=== PATIENT | male | born 1960 | race Caucasian/White ===

== ENCOUNTER 2016-07-13 13:31 | Emergency (ER) | payer OTHER ==
[~2016-07-13] VITALS: Ht 160 cm; Wt 63.5 kg
[2016-07-13] MEDS ORDERED: METO-295 PO (13:49)
[2016-07-13] MEDS ORDERED: SENN8.6T6 PO (13:49)
[2016-07-13] MEDS ORDERED: MOME13HF2 IH (13:49)
[2016-07-13] MEDS ORDERED: AMIO200T2 PO (13:49)
[2016-07-13] MEDS ORDERED: AMLO10TA2 PO (13:49)
[2016-07-13] MEDS ORDERED: ATOR40TA PO (13:49)
[2016-07-13] MEDS ORDERED: ACET-2605 PO (13:49)
[2016-07-13] MEDS ORDERED: HYDR-3026 PO (13:49)
[2016-07-13] MEDS ORDERED: ASPI81TA2 PO (13:49)
[2016-07-13] MEDS ORDERED: FAMO20TA8 PO (13:49)
[2016-07-13] MEDS ORDERED: ONDA4TAB5 PO (13:49)
[2016-07-13] MEDS ORDERED: MULT1TAB11 PO (13:49)
[2016-07-13] MEDS ORDERED: HYDR-4075 PO (13:49)
[2016-07-13] MEDS ORDERED: APIX5TAB PO (13:49)
[2016-07-13] MEDS ORDERED: LISI40TA4 PO (13:49)
[2016-07-13] MEDS ORDERED: LEVE250T2 PO (13:49)
[2016-07-13] MEDS ORDERED: METO25TA20 PO (13:49)
[2016-07-13] MEDS ORDERED: IV SET PRIMARY 1 EA INFUS.SET MC ONE (13:54)
[2016-07-13] MEDS ORDERED: IV NS 0.9% 1,000 ML ONE (13:54)
[2016-07-13] MEDS ORDERED: IV NS 0.9% 500 ML BAG IV ONE (14:00)
[2016-07-13 14:10] LABS: BASOPHILS % (AUTO) 0.4 % (0.0-2.0); DIFF TOTAL % 100 %; EOSINOPHILS # (AUTO) 0.3 /CMM (0.0-0.7); EOSINOPHILS % (AUTO) 6.1 % (0.0-6.0); HEMATOCRIT 32 % (39-51); HEMOGLOBIN 9.9 g/dL (13.5-17.5); MEAN CORPUSCULAR HEMOGLOBIN 30 PG (26.0-33.0); MEAN CORPUSCULAR HGB CONC 31 g/dl (31.0-36.0); MEAN CORPUSCULAR VOLUME 97 fL (80-96); MONOCYTES # (AUTO) 0.9 /CMM (0.1-1.30); MONOCYTES % (AUTO) 16.7 % (2.0-12.0); NEUTROPHILS % (AUTO) 56.8 % (43.0-81.0); PLATELET COUNT (AUTO) 122 /CMM (150-450); WHITE BLOOD COUNT (AUTO) 5.2 K/uL (4.3-11.0)
[2016-07-13 14:20] LABS: CALCIUM, SERUM 8.3 mg/dL (8.5-10.1); CREATININE 4.7 mg/dL (0.6-1.3); POTASSIUM 4.1 mmol/L (3.5-5.1)
[2016-07-13 14:24] LABS: INR 1.25 (0.87-1.13); PROTHROMBIN TIME 13.1 SECS (9.5-12.7)
[2016-07-13 14:26] LABS: ALBUMIN 2.5 g/dL (3.4-5.0); BILIRUBIN,DIRECT 0.3 mg/dL (0.0-0.2); BILIRUBIN,TOTAL 0.5 mg/dL (0.2-1.0); INDIRECT BILIRUBIN 0.2 mg/dL (0.0-1.1); TOTAL PROTEIN, SERUM 6.9 g/dL (6.4-8.2)
[2016-07-13 14:28] LABS: TROPONIN I 0.267 ng/mL (0.00-0.056)
[2016-07-13 14:59] LABS: ANISOCYTOSIS 1+; BAND % (MANUAL) 5 % (0.0-5.0); EOSINOPHILS % (MANUAL) 7 % (0-4); LYMPHOCYTES % (MANUAL) 15 % (16-48); PLATELET ESTIMATE DECRE
[2016-07-13 15:00] LABS: OVALOCYTES RARE; POIKILOCYTOSIS RARE
[2016-07-13 15:31] LABS: LACTIC ACID 1.1 mmol/L (0.4-2.0)
[2016-07-13 17:31] VITALS: BP 96/43
== END 2016-07-13 17:33 | disposition home or self-care (01) ==
LOC: ER 13:33
DX: I95.9 Hypotension, unspecified (principal); I12.0 Hypertensive chronic kidney disease with stage 5 chronic kidney disease or end stage renal disease; N18.5 Chronic kidney disease, stage 5
CPT/HCPCS: 36415; 71010; 80048; 80076; 83605; 84484; 85025; 85730; 87040 ×2; 93005; 96360; 99285; A4606; J7030; Z7610

== ENCOUNTER 2016-07-25 16:55 | Inpatient (IN) | payer OTHER ==
[~2016-07-25] VITALS: Ht 157.5 cm; Wt 55.4 kg
[~2016-07-25 16:55] MED LIST: ACET-2605 PO; AMIO200T2 PO; AMLO10TA2 PO; APIX5TAB PO; ASPI81TA2 PO; ATOR40TA PO; FAMO20TA8 PO; HYDR-3026 PO; HYDR-4075 PO; LEVE250T2 PO; LISI40TA4 PO; METO-295 PO; METO25TA20 PO; MOME13HF2 IH; MULT1TAB11 PO; ONDA4TAB5 PO; SENN8.6T6 PO
[2016-07-25 18:18] LABS: BASOPHILS % (AUTO) 0.7 % (0.0-2.0); DIFF TOTAL % 100 %; EOSINOPHILS # (AUTO) 0.5 /CMM (0.0-0.7); EOSINOPHILS % (AUTO) 8.4 % (0.0-6.0); HEMATOCRIT 26 % (39-51); HEMOGLOBIN 8.4 g/dL (13.5-17.5); LYMPHOCYTES # (AUTO) 1.3 /CMM (0.8-4.8); LYMPHOCYTES % (AUTO) 21.4 % (20.0-44.0); MEAN CORPUSCULAR HEMOGLOBIN 30 PG (26.0-33.0); MEAN CORPUSCULAR HGB CONC 32 g/dl (31.0-36.0); MEAN CORPUSCULAR VOLUME 94 fL (80-96); MONOCYTES # (AUTO) 0.6 /CMM (0.1-1.30); MONOCYTES % (AUTO) 9.5 % (2.0-12.0); NEUTROPHILS # (AUTO) 3.8 /CMM (1.8-8.9); PLATELET COUNT (AUTO) 209 /CMM (150-450); RED BLOOD CELL COUNT(AUTO) 2.79 MIL/uL (4.5-6.0); WHITE BLOOD COUNT (AUTO) 6.2 K/uL (4.3-11.0)
[2016-07-25] MEDS ORDERED: ZINC220C8 PO (18:24)
[2016-07-25] MEDS ORDERED: ESCI5TAB PO (18:24)
[2016-07-25 18:32] LABS: ALBUMIN 2.6 g/dL (3.4-5.0); BILIRUBIN,DIRECT 0.2 mg/dL (0.0-0.2); BILIRUBIN,TOTAL 0.5 mg/dL (0.2-1.0); CALCIUM, SERUM 8.7 mg/dL (8.5-10.1); INDIRECT BILIRUBIN 0.3 mg/dL (0.0-1.1); POTASSIUM 4.5 mmol/L (3.5-5.1); TOTAL PROTEIN, SERUM 6.9 g/dL (6.4-8.2)
[2016-07-25 18:33] LABS: INR 1.2 (0.87-1.13); PROTHROMBIN TIME 12.6 SECS (9.5-12.7)
[2016-07-25] MEDS ORDERED: DEXTROSE 50%-WATER 50 ML DISP.SYRIN ONE (18:34)
[2016-07-25 18:35] LABS: CREATININE 7.7 mg/dL (0.6-1.3)
[2016-07-25] MEDS ORDERED: DEXTROSE 50%-WATER 50 ML DISP.SYRIN IV ONE (19:00)
[2016-07-25 21:10] VITALS: BP 124/54
[2016-07-26] VITALS (8 sets, daily range): BP systolic 123–140; BP diastolic 60–70
[2016-07-26 07:41] LABS: BASOPHILS # (AUTO) 0.1 /CMM (0.0-0.2); DIFF TOTAL % 100 %; EOSINOPHILS # (AUTO) 0.5 /CMM (0.0-0.7); EOSINOPHILS % (AUTO) 9.4 % (0.0-6.0); HEMATOCRIT 24 % (39-51); HEMOGLOBIN 7.5 g/dL (13.5-17.5); LYMPHOCYTES # (AUTO) 1.1 /CMM (0.8-4.8); LYMPHOCYTES % (AUTO) 20.5 % (20.0-44.0); MEAN CORPUSCULAR HEMOGLOBIN 30 PG (26.0-33.0); MEAN CORPUSCULAR HGB CONC 32 g/dl (31.0-36.0); MEAN CORPUSCULAR VOLUME 93 fL (80-96); MONOCYTES # (AUTO) 0.5 /CMM (0.1-1.30); MONOCYTES % (AUTO) 9.5 % (2.0-12.0); NEUTROPHILS # (AUTO) 3.2 /CMM (1.8-8.9); NEUTROPHILS % (AUTO) 59.6 % (43.0-81.0); PLATELET COUNT (AUTO) 213 /CMM (150-450); RED BLOOD CELL COUNT(AUTO) 2.52 MIL/uL (4.5-6.0); WHITE BLOOD COUNT (AUTO) 5.4 K/uL (4.3-11.0)
[2016-07-26 07:55] LABS: ALBUMIN 2.5 g/dL (3.4-5.0); BILIRUBIN,TOTAL 0.5 mg/dL (0.2-1.0); CALCIUM, SERUM 8.6 mg/dL (8.5-10.1); POTASSIUM 4.9 mmol/L (3.5-5.1); TOTAL PROTEIN, SERUM 6.8 g/dL (6.4-8.2)
[2016-07-26 08:06] LABS: CREATININE 8.5 mg/dL (0.6-1.3)
[2016-07-26] MEDS: AMLODIPINE BESYLATE 10 MG TABLET PO SCH (09:30)
[2016-07-26] MEDS ORDERED: SENNOSIDES 8.6 MG TABLET PO PRN (09:30)
[2016-07-26] MEDS ORDERED: FAMOTIDINE (20 MG) 20 MG TABLET PO PRN (09:30)
[2016-07-26] MEDS ORDERED: METOCLOPRAMIDE HCL 10 MG TABLET PO PRN (09:30)
[2016-07-26] MEDS ORDERED: ACETAMINOPHEN ES 500 MG TABLET PO PRN (09:30)
[2016-07-26] MEDS ORDERED: HYDROGEL DRESSING 90 GM TUBE TP SCH (10:30)
[2016-07-26] MEDS ORDERED: Z GUARD REMEDY 2 OZ OINT TP PRN (10:30)
[2016-07-26] MEDS: LISINOPRIL (20MG) 20 MG TABLET PO SCH (11:00)
[2016-07-26] MEDS ORDERED: hydrOXYzine PAMOATE 25 MG CAPSULE PO PRN (11:00)
[2016-07-26] MEDS ORDERED: ONDANSETRON 4 MG TAB.RAPDIS PO PRN (11:00)
[2016-07-26] MEDS ORDERED: APIXABAN 5 MG TABLET PO SCH (11:00)
[2016-07-26] MEDS: ASPIRIN 81 MG TAB.CHEW PO SCH (11:54)
[2016-07-26] MEDS: ESCITALOPRAM OXALATE (10 MG) 10 MG TABLET PO SCH (11:55)
[2016-07-26] MEDS: ZINC SULFATE 220 MG CAPSULE PO SCH (11:55)
[2016-07-26] MEDS: METOPROLOL TARTRATE 50 MG TABLET PO SCH ×2 (11:55→21:41)
[2016-07-26] MEDS: AMIODARONE HCL 200 MG TABLET PO SCH (11:55)
[2016-07-26] MEDS: VIT B CMPLX 3/FA/VIT C/BIOTIN 1 TAB TABLET PO SCH (11:55)
[2016-07-26] MEDS: LEVETIRACETAM (250 MG) 250 MG TABLET PO SCH (11:55)
[2016-07-26] MEDS ORDERED: METOCLOPRAMIDE HCL 10 MG TABLET PO SCH ×2 (12:00)
[2016-07-26 13:32] LABS: IRON, SERUM 53 ug/dl (50-175); PERCENT SATURATION 56 % (14-33); TOTAL IRON BINDING CAPACITY 94 ug/dl (250-450)
[2016-07-26] MEDS: EPOETIN ALFA (10,000 UNIT) 10,000 UNIT/ML VIAL SQ SCH (15:10)
[2016-07-26] MEDS: SILVER SULFADIAZINE CREAM 25 GM TUBE TP SCH ×2 (15:11→17:00)
[2016-07-26] MEDS ORDERED: SODIUM POLYSTYRENE SULFONATE 15 G/60 ML BOTTLE PO ONE (17:30)
[2016-07-26] MEDS: BLOOD SUGAR DIAGNOSTIC 1 EACH STRIP IN SCH (21:40)
[2016-07-26] MEDS: ATORVASTATIN 40 MG TABLET PO SCH (21:41)
[2016-07-26] MEDS ORDERED: BLOOD SUGAR DIAGNOSTIC 1 EACH STRIP IN SCH (22:00)
[2016-07-27] MEDS: BLOOD SUGAR DIAGNOSTIC 1 EACH STRIP IN SCH ×4 (06:27→21:50)
[2016-07-27 08:00] VITALS: BP 120/54
[2016-07-27] MEDS: AMLODIPINE BESYLATE 10 MG TABLET PO SCH (08:26)
[2016-07-27] MEDS: LISINOPRIL (20MG) 20 MG TABLET PO SCH (08:27)
[2016-07-27] MEDS: ESCITALOPRAM OXALATE (10 MG) 10 MG TABLET PO SCH (08:28)
[2016-07-27] MEDS: ZINC SULFATE 220 MG CAPSULE PO SCH (08:28)
[2016-07-27] MEDS: ASPIRIN 81 MG TAB.CHEW PO SCH (08:28)
[2016-07-27] MEDS: VIT B CMPLX 3/FA/VIT C/BIOTIN 1 TAB TABLET PO SCH (08:28)
[2016-07-27] MEDS: AMIODARONE HCL 200 MG TABLET PO SCH (08:29)
[2016-07-27] MEDS: METOPROLOL TARTRATE 50 MG TABLET PO SCH ×2 (08:30→21:46)
[2016-07-27] MEDS: SILVER SULFADIAZINE CREAM 25 GM TUBE TP SCH ×2 (08:31→17:47)
[2016-07-27 09:19] LABS: BASOPHILS % (AUTO) 0.5 % (0.0-2.0); DIFF TOTAL % 100 %; EOSINOPHILS # (AUTO) 0.7 /CMM (0.0-0.7); EOSINOPHILS % (AUTO) 12.2 % (0.0-6.0); HEMATOCRIT 26 % (39-51); LYMPHOCYTES # (AUTO) 1.4 /CMM (0.8-4.8); LYMPHOCYTES % (AUTO) 24.6 % (20.0-44.0); MEAN CORPUSCULAR HEMOGLOBIN 29 PG (26.0-33.0); MEAN CORPUSCULAR HGB CONC 31 g/dl (31.0-36.0); MEAN CORPUSCULAR VOLUME 93 fL (80-96); MONOCYTES # (AUTO) 0.7 /CMM (0.1-1.30); MONOCYTES % (AUTO) 11.8 % (2.0-12.0); NEUTROPHILS # (AUTO) 2.9 /CMM (1.8-8.9); NEUTROPHILS % (AUTO) 50.9 % (43.0-81.0); PLATELET COUNT (AUTO) 231 /CMM (150-450); RED BLOOD CELL COUNT(AUTO) 2.76 MIL/uL (4.5-6.0); WHITE BLOOD COUNT (AUTO) 5.8 K/uL (4.3-11.0)
[2016-07-27 09:25] LABS: CALCIUM, SERUM 8.7 mg/dL (8.5-10.1); PHOSPHORUS 5.6 mg/dL (2.5-4.9); POTASSIUM 5.2 mmol/L (3.5-5.1)
[2016-07-27 09:28] LABS: CREATININE 9.3 mg/dL (0.6-1.3)
[2016-07-27] MEDS ORDERED: LIDOCAINE 1% INJ 50 ML MDV IJ ONE (09:42)
[2016-07-27] MEDS ORDERED: IOHEXOL 50 ML IV ONE (09:43)
[2016-07-27] MEDS ORDERED: FENTANYL PF 100MCG/2ML AMPUL ONE (09:45)
[2016-07-27] MEDS ORDERED: MIDAZOLAM HCL 2 MG/2ML VIAL ONE (09:45)
[2016-07-27] MEDS ORDERED: HEPARIN SODIUM, PORCINE 1,000 UNIT/ML VIAL ONE (09:56)
[2016-07-27] MEDS: LEVETIRACETAM (250 MG) 250 MG TABLET PO SCH (11:30)
[2016-07-27] MEDS: EPOETIN ALFA (10,000 UNIT) 10,000 UNIT/ML VIAL SQ SCH (12:34)
[2016-07-27] MEDS ORDERED: ALBUMIN 25% 25 GM in PREMIX 1 EA IV ONE (14:00)
[2016-07-27 16:05] VITALS: BP 114/40
[2016-07-27 20:00] VITALS: BP 131/59
[2016-07-27] MEDS: ATORVASTATIN 40 MG TABLET PO SCH (21:46)
[2016-07-27 22:00] VITALS: BP 131/59
[2016-07-28] MEDS: BLOOD SUGAR DIAGNOSTIC 1 EACH STRIP IN SCH ×4 (06:30→21:44)
[2016-07-28 08:00] VITALS: BP 135/56
[2016-07-28] MEDS: AMLODIPINE BESYLATE 10 MG TABLET PO SCH (08:29)
[2016-07-28] MEDS: ESCITALOPRAM OXALATE (10 MG) 10 MG TABLET PO SCH (08:29)
[2016-07-28] MEDS: VIT B CMPLX 3/FA/VIT C/BIOTIN 1 TAB TABLET PO SCH (08:29)
[2016-07-28] MEDS: ASPIRIN 81 MG TAB.CHEW PO SCH (08:29)
[2016-07-28] MEDS: ZINC SULFATE 220 MG CAPSULE PO SCH (08:29)
[2016-07-28] MEDS: LISINOPRIL (20MG) 20 MG TABLET PO SCH (08:30)
[2016-07-28] MEDS: METOPROLOL TARTRATE 50 MG TABLET PO SCH ×3 (08:30→22:11)
[2016-07-28] MEDS: AMIODARONE HCL 200 MG TABLET PO SCH (08:31)
[2016-07-28] MEDS: SILVER SULFADIAZINE CREAM 25 GM TUBE TP SCH ×2 (08:39→16:37)
[2016-07-28] MEDS ORDERED: MUPIROCIN OINT 2% 22 GM TUBE TP SCH (09:30)
[2016-07-28] MEDS: LEVETIRACETAM (250 MG) 250 MG TABLET PO SCH (10:52)
[2016-07-28] MEDS: APIXABAN 2.5 MG TABLET PO SCH ×2 (10:53→21:48)
[2016-07-28] MEDS: MUPIROCIN OINT 2% 22 GM TUBE SCH ×2 (10:53→21:45)
[2016-07-28 16:00] VITALS: BP 128/66
[2016-07-28 20:00] VITALS: BP 142/63
[2016-07-28] MEDS: ATORVASTATIN 40 MG TABLET PO SCH (21:45)
[2016-07-28 22:00] VITALS: BP 134/62
[2016-07-29] MEDS: BLOOD SUGAR DIAGNOSTIC 1 EACH STRIP IN SCH ×4 (06:34→21:54)
[2016-07-29 08:00] VITALS: BP 142/63
[2016-07-29] MEDS: AMIODARONE HCL 200 MG TABLET PO SCH (09:00)
[2016-07-29] MEDS: METOPROLOL TARTRATE 50 MG TABLET PO SCH ×2 (09:00→21:54)
[2016-07-29] MEDS: AMLODIPINE BESYLATE 10 MG TABLET PO SCH (10:47)
[2016-07-29] MEDS: LISINOPRIL (20MG) 20 MG TABLET PO SCH (10:47)
[2016-07-29] MEDS: ESCITALOPRAM OXALATE (10 MG) 10 MG TABLET PO SCH (10:47)
[2016-07-29] MEDS: ZINC SULFATE 220 MG CAPSULE PO SCH (10:47)
[2016-07-29] MEDS: LEVETIRACETAM (250 MG) 250 MG TABLET PO SCH (10:47)
[2016-07-29] MEDS: APIXABAN 2.5 MG TABLET PO SCH ×2 (10:47→16:43)
[2016-07-29] MEDS: VIT B CMPLX 3/FA/VIT C/BIOTIN 1 TAB TABLET PO SCH (10:48)
[2016-07-29] MEDS: ASPIRIN 81 MG TAB.CHEW PO SCH (10:48)
[2016-07-29] MEDS: SILVER SULFADIAZINE CREAM 25 GM TUBE TP SCH ×2 (10:49→16:43)
[2016-07-29] MEDS: MUPIROCIN OINT 2% 22 GM TUBE SCH ×2 (10:49→21:54)
[2016-07-29 16:00] VITALS: BP 140/55
[2016-07-29 20:55] VITALS: BP 120/54
[2016-07-29] MEDS: ATORVASTATIN 40 MG TABLET PO SCH (21:54)
[2016-07-30 07:24] LABS: BASOPHILS # (AUTO) 0.1 /CMM (0.0-0.2); DIFF TOTAL % 100 %; EOSINOPHILS # (AUTO) 0.6 /CMM (0.0-0.7); EOSINOPHILS % (AUTO) 9.8 % (0.0-6.0); HEMATOCRIT 23 % (39-51); HEMOGLOBIN 7.2 g/dL (13.5-17.5); LYMPHOCYTES # (AUTO) 1.3 /CMM (0.8-4.8); LYMPHOCYTES % (AUTO) 23.4 % (20.0-44.0); MEAN CORPUSCULAR HEMOGLOBIN 30 PG (26.0-33.0); MEAN CORPUSCULAR HGB CONC 32 g/dl (31.0-36.0); MEAN CORPUSCULAR VOLUME 95 fL (80-96); MONOCYTES # (AUTO) 0.8 /CMM (0.1-1.30); MONOCYTES % (AUTO) 13.7 % (2.0-12.0); NEUTROPHILS # (AUTO) 2.9 /CMM (1.8-8.9); NEUTROPHILS % (AUTO) 52.1 % (43.0-81.0); PLATELET COUNT (AUTO) 129 /CMM (150-450); RED BLOOD CELL COUNT(AUTO) 2.39 MIL/uL (4.5-6.0); WHITE BLOOD COUNT (AUTO) 5.7 K/uL (4.3-11.0)
[2016-07-30] MEDS: BLOOD SUGAR DIAGNOSTIC 1 EACH STRIP IN SCH ×4 (07:30→21:02)
[2016-07-30 07:42] LABS: CALCIUM, SERUM 8.5 mg/dL (8.5-10.1); CREATININE 6.2 mg/dL (0.6-1.3); PHOSPHORUS 4.7 mg/dL (2.5-4.9); POTASSIUM 4.1 mmol/L (3.5-5.1)
[2016-07-30 08:00] VITALS: BP 171/79
[2016-07-30] MEDS: VIT B CMPLX 3/FA/VIT C/BIOTIN 1 TAB TABLET PO SCH (08:29)
[2016-07-30] MEDS: AMLODIPINE BESYLATE 10 MG TABLET PO SCH (08:29)
[2016-07-30] MEDS: SILVER SULFADIAZINE CREAM 25 GM TUBE TP SCH ×2 (08:29→16:33)
[2016-07-30] MEDS: MUPIROCIN OINT 2% 22 GM TUBE SCH ×2 (08:29→21:00)
[2016-07-30] MEDS: ASPIRIN 81 MG TAB.CHEW PO SCH (08:30)
[2016-07-30] MEDS: ZINC SULFATE 220 MG CAPSULE PO SCH (08:30)
[2016-07-30] MEDS: AMIODARONE HCL 200 MG TABLET PO SCH (08:30)
[2016-07-30] MEDS: LISINOPRIL (20MG) 20 MG TABLET PO SCH (08:30)
[2016-07-30] MEDS: METOPROLOL TARTRATE 50 MG TABLET PO SCH ×2 (08:30→20:54)
[2016-07-30] MEDS: ESCITALOPRAM OXALATE (10 MG) 10 MG TABLET PO SCH (08:30)
[2016-07-30] MEDS: APIXABAN 2.5 MG TABLET PO SCH ×2 (09:00→16:33)
[2016-07-30] MEDS: LEVETIRACETAM (250 MG) 250 MG TABLET PO SCH (09:40)
[2016-07-30 09:41] LABS: INR 1.19 (0.87-1.13); PROTHROMBIN TIME 12.9 SECS (9.5-12.7)
[2016-07-30 16:00] VITALS: BP 141/55
[2016-07-30 19:46] VITALS: BP 119/60
[2016-07-30 20:03] VITALS: BP 119/60
[2016-07-30] MEDS: ATORVASTATIN 40 MG TABLET PO SCH (20:53)
[2016-07-31] MEDS: BLOOD SUGAR DIAGNOSTIC 1 EACH STRIP IN SCH ×4 (05:52→21:54)
[2016-07-31 08:00] VITALS: BP 128/68
[2016-07-31] MEDS ORDERED: BLOOD IV SET 1 EA INFUS.SET MC ONE (08:26)
[2016-07-31 08:32] VITALS: BP 128/68
[2016-07-31] MEDS ORDERED: EPOETIN ALFA (10,000 UNIT) 10,000 UNIT/ML VIAL SQ ONE (09:30)
[2016-07-31] MEDS: LEVETIRACETAM (250 MG) 250 MG TABLET PO SCH (09:41)
[2016-07-31] MEDS: ESCITALOPRAM OXALATE (10 MG) 10 MG TABLET PO SCH (09:42)
[2016-07-31] MEDS: AMLODIPINE BESYLATE 10 MG TABLET PO SCH (09:42)
[2016-07-31] MEDS: LISINOPRIL (20MG) 20 MG TABLET PO SCH (09:42)
[2016-07-31] MEDS: VIT B CMPLX 3/FA/VIT C/BIOTIN 1 TAB TABLET PO SCH (09:43)
[2016-07-31] MEDS: METOPROLOL TARTRATE 50 MG TABLET PO SCH ×2 (09:43→21:00)
[2016-07-31] MEDS: APIXABAN 2.5 MG TABLET PO SCH ×2 (09:43→16:59)
[2016-07-31] MEDS: AMIODARONE HCL 200 MG TABLET PO SCH (09:43)
[2016-07-31] MEDS: ASPIRIN 81 MG TAB.CHEW PO SCH (09:43)
[2016-07-31] MEDS: ZINC SULFATE 220 MG CAPSULE PO SCH (09:45)
[2016-07-31] MEDS: MUPIROCIN OINT 2% 22 GM TUBE SCH ×2 (09:52→20:54)
[2016-07-31] MEDS: SILVER SULFADIAZINE CREAM 25 GM TUBE TP SCH ×2 (09:52→16:55)
[2016-07-31 13:33] LABS: CALCIUM, SERUM 8.1 mg/dL (8.5-10.1); CREATININE 5.9 mg/dL (0.6-1.3); POTASSIUM 4.3 mmol/L (3.5-5.1)
[2016-07-31 13:35] LABS: BASOPHILS % (AUTO) 0.5 % (0.0-2.0); DIFF TOTAL % 100 %; EOSINOPHILS # (AUTO) 0.5 /CMM (0.0-0.7); EOSINOPHILS % (AUTO) 7.9 % (0.0-6.0); HEMATOCRIT 26 % (39-51); HEMOGLOBIN 8.4 g/dL (13.5-17.5); LYMPHOCYTES % (AUTO) 16.6 % (20.0-44.0); MEAN CORPUSCULAR HEMOGLOBIN 29 PG (26.0-33.0); MEAN CORPUSCULAR HGB CONC 32 g/dl (31.0-36.0); MEAN CORPUSCULAR VOLUME 92 fL (80-96); MONOCYTES # (AUTO) 0.7 /CMM (0.1-1.30); MONOCYTES % (AUTO) 12.2 % (2.0-12.0); NEUTROPHILS # (AUTO) 3.8 /CMM (1.8-8.9); NEUTROPHILS % (AUTO) 62.8 % (43.0-81.0); PLATELET COUNT (AUTO) 121 /CMM (150-450); RED BLOOD CELL COUNT(AUTO) 2.87 MIL/uL (4.5-6.0)
[2016-07-31 13:37] LABS: PHOSPHORUS 3.6 mg/dL (2.5-4.9)
[2016-07-31 16:00] VITALS: BP 138/68
[2016-07-31 20:00] VITALS: BP 110/44
[2016-07-31] MEDS: ATORVASTATIN 40 MG TABLET PO SCH (21:16)
[2016-08-01] MEDS: BLOOD SUGAR DIAGNOSTIC 1 EACH STRIP IN SCH ×4 (06:21→22:56)
[2016-08-01 07:06] LABS: BASOPHILS % (AUTO) 0.3 % (0.0-2.0); DIFF TOTAL % 100 %; EOSINOPHILS # (AUTO) 0.4 /CMM (0.0-0.7); EOSINOPHILS % (AUTO) 4.8 % (0.0-6.0); HEMATOCRIT 25 % (39-51); LYMPHOCYTES # (AUTO) 1.3 /CMM (0.8-4.8); LYMPHOCYTES % (AUTO) 14.7 % (20.0-44.0); MEAN CORPUSCULAR HEMOGLOBIN 29 PG (26.0-33.0); MEAN CORPUSCULAR HGB CONC 32 g/dl (31.0-36.0); MEAN CORPUSCULAR VOLUME 93 fL (80-96); MONOCYTES # (AUTO) 1.1 /CMM (0.1-1.30); MONOCYTES % (AUTO) 11.7 % (2.0-12.0); NEUTROPHILS # (AUTO) 6.3 /CMM (1.8-8.9); NEUTROPHILS % (AUTO) 68.5 % (43.0-81.0); PLATELET COUNT (AUTO) 116 /CMM (150-450); RED BLOOD CELL COUNT(AUTO) 2.72 MIL/uL (4.5-6.0); WHITE BLOOD COUNT (AUTO) 9.1 K/uL (4.3-11.0)
[2016-08-01 07:31] LABS: CALCIUM, SERUM 8.3 mg/dL (8.5-10.1); CREATININE 6.8 mg/dL (0.6-1.3); PHOSPHORUS 4.5 mg/dL (2.5-4.9); POTASSIUM 4.8 mmol/L (3.5-5.1)
[2016-08-01 08:00] VITALS: BP 130/64
[2016-08-01] MEDS: ESCITALOPRAM OXALATE (10 MG) 10 MG TABLET PO SCH (08:40)
[2016-08-01] MEDS: ZINC SULFATE 220 MG CAPSULE PO SCH (08:40)
[2016-08-01] MEDS: VIT B CMPLX 3/FA/VIT C/BIOTIN 1 TAB TABLET PO SCH (08:40)
[2016-08-01] MEDS: ASPIRIN 81 MG TAB.CHEW PO SCH (08:41)
[2016-08-01] MEDS: MUPIROCIN OINT 2% 22 GM TUBE SCH ×2 (08:43→20:59)
[2016-08-01] MEDS: HYDROGEL DRESSING 90 GM TUBE TP PRN ×4 (08:44→17:50)
[2016-08-01] MEDS: AMIODARONE HCL 200 MG TABLET PO SCH (08:54)
[2016-08-01] MEDS: AMLODIPINE BESYLATE 10 MG TABLET PO SCH (08:54)
[2016-08-01] MEDS: LISINOPRIL (20MG) 20 MG TABLET PO SCH (08:55)
[2016-08-01] MEDS: METOPROLOL TARTRATE 50 MG TABLET PO SCH ×2 (08:55→21:01)
[2016-08-01] MEDS: APIXABAN 2.5 MG TABLET PO SCH ×2 (09:01→17:50)
[2016-08-01] MEDS: SILVER SULFADIAZINE CREAM 25 GM TUBE TP SCH ×2 (09:02→17:59)
[2016-08-01] MEDS: LEVETIRACETAM (250 MG) 250 MG TABLET PO SCH (11:17)
[2016-08-01 16:00] VITALS: BP 132/65
[2016-08-01 20:00] VITALS: BP 123/66
[2016-08-01] MEDS: ATORVASTATIN 40 MG TABLET PO SCH (21:34)
[2016-08-02] MEDS: BLOOD SUGAR DIAGNOSTIC 1 EACH STRIP IN SCH ×4 (06:10→21:02)
[2016-08-02 08:00] VITALS: BP 104/50
[2016-08-02] MEDS: ASPIRIN 81 MG TAB.CHEW PO SCH (09:00)
[2016-08-02] MEDS: VIT B CMPLX 3/FA/VIT C/BIOTIN 1 TAB TABLET PO SCH (09:48)
[2016-08-02] MEDS: ESCITALOPRAM OXALATE (10 MG) 10 MG TABLET PO SCH (09:49)
[2016-08-02] MEDS: ZINC SULFATE 220 MG CAPSULE PO SCH (09:49)
[2016-08-02] MEDS: HYDROGEL DRESSING 90 GM TUBE TP PRN ×2 (09:49→16:42)
[2016-08-02] MEDS: SILVER SULFADIAZINE CREAM 25 GM TUBE TP SCH ×2 (09:50→16:43)
[2016-08-02] MEDS: MUPIROCIN OINT 2% 22 GM TUBE SCH ×2 (10:23→21:05)
[2016-08-02] MEDS: METOPROLOL TARTRATE 50 MG TABLET PO SCH ×2 (10:27→21:00)
[2016-08-02] MEDS: LEVETIRACETAM (250 MG) 250 MG TABLET PO SCH (10:28)
[2016-08-02] MEDS: AMLODIPINE BESYLATE 10 MG TABLET PO SCH (10:29)
[2016-08-02] MEDS: AMIODARONE HCL 200 MG TABLET PO SCH (10:29)
[2016-08-02] MEDS: LISINOPRIL (20MG) 20 MG TABLET PO SCH (10:30)
[2016-08-02] MEDS: APIXABAN 2.5 MG TABLET PO SCH ×2 (10:32→16:42)
[2016-08-02 16:00] VITALS: BP 125/58
[2016-08-02 20:46] VITALS: BP 126/63
[2016-08-02 21:00] VITALS: BP 126/63
== END 2016-08-02 22:00 | DRG 466 ==
LOC: ER 16:58 → TELE 20:23 → MED 07-26 08:09
PROVIDERS: ADMIT Internal Medicine; ATTEND Internal Medicine Nephrology
PROC: 05HN33Z Insertion of Infusion Device into Left Internal Jugular Vein, Percutaneous Approach (ICD-10-PCS; principal; 2016-07-27 10:30)
PROC: B514YZA Fluoroscopy of Left Jugular Veins using Other Contrast, Guidance (ICD-10-PCS; principal; 2016-07-27 10:30)
PROC: 5A1D60Z (ICD-10-PCS; 2016-07-29)
PROC: 30233N1 Transfusion of Nonautologous Red Blood Cells into Peripheral Vein, Percutaneous Approach (ICD-10-PCS; 2016-07-31)
DX: T82.510A Breakdown (mechanical) of surgically created arteriovenous fistula, initial encounter (principal); N18.6 End stage renal disease; I13.0 Hypertensive heart and chronic kidney disease with heart failure and stage 1 through stage 4 chronic kidney disease, or unspecified chronic kidney disease; E11.22 Type 2 diabetes mellitus with diabetic chronic kidney disease; I48.91 Unspecified atrial fibrillation; I50.32 Chronic diastolic (congestive) heart failure; J44.9 Chronic obstructive pulmonary disease, unspecified; K21.9 Gastro-esophageal reflux disease without esophagitis; Y71.2 Prosthetic and other implants, materials and accessory cardiovascular devices associated with adverse incidents; Y92.129 Unspecified place in nursing home as the place of occurrence of the external cause; Z99.2 Dependence on renal dialysis; I25.10 Atherosclerotic heart disease of native coronary artery without angina pectoris; D64.9 Anemia, unspecified; E78.5 Hyperlipidemia, unspecified
CPT/HCPCS: 36415; 71010-TC; 80048-TC; 80053-TC; 80076-TC; 82728-TC; 82962-TC; 83540-TC; 83735-TC; 84100-TC; 84484-TC; 85025-TC; 85610-TC; 85730-TC; 86850-TC; 86921-TC; 87081-TC; 90935-TC; A4216; A4606; A6248; A6402; A6403; C1750; C1769; J0885; J1644; J2250; J3010; J3490; P9016-BL; P9047; Q9967; Z7610

== ENCOUNTER 2016-11-07 17:05 | Inpatient (IN) | payer OTHER ==
[~2016-11-07] VITALS: Ht 160 cm; Wt 64.4 kg
[~2016-11-07 17:05] MED LIST changes: +ESCI5TAB PO; +ZINC220C8 PO
--- NOTE | 2016-11-07 17:06 | NUR ---
bibpa from hd cented due to neck, left knee and both shoulders key sp fall 3 days ago. Pt was sent to ed during hd-- hd not completely finish. Pt is aao3 with episode of confusion. Appears in no apparent distress, respiration even and unlabored. pt on o2 via nc @2lpm. vss. connected pt to tele monitor.
--- NOTE | 2016-11-07 17:22 | NUR ---
MD Ulloa at
--- NOTE | 2016-11-07 18:40 | NUR ---
PT REFUSED IV ACCESS AND BLOOD DRAW. MADE AWARE.
--- NOTE | 2016-11-07 19:20 | NUR ---
PT REPORT RECIVED FROM DARELL ROBLES, PT IS SLEEPING IN BED AND PT IS ON MONITOR, WILL CONTINUE TO MONITOR.
[2016-11-07] MEDS ORDERED: HYDR25CA PO (19:31)
[2016-11-07] MEDS ORDERED: HYDR-548 PO (19:31)
[2016-11-07] MEDS ORDERED: ESCI10TA PO (19:31)
[2016-11-07] MEDS ORDERED: HYDR-3326 PO (19:31)
[2016-11-07] MEDS ORDERED: IBUP-1955 PO (19:31)
[2016-11-07] MEDS ORDERED: BLOO-668 IN (19:31)
[2016-11-07] MEDS ORDERED: APIX2.5T PO (19:31)
[2016-11-07] MEDS ORDERED: AMIN30LI4 PO (19:31)
--- NOTE | 2016-11-07 19:54 | NUR ---
IV ATTEMPT UNSUCESSFUL, PT NOW REFUSING BLOOD WORK OR IV'S, MD MADE AWARE WILL CONTINUE TO MONITOR.
--- NOTE | 2016-11-07 19:54 | NUR ---
RT Pt refused ABG. Dr Artemio bates.
[2016-11-07] MEDS ORDERED: HYDROCODONE/APAP 10/325MG 1 EA TABLET ONE (20:09)
--- NOTE | 2016-11-07 20:15 | NUR ---
CALLED NURSING SUP. FOR TELE BED
[2016-11-07 21:00] VITALS: BP 143/71
[2016-11-07] MEDS ORDERED: HYDROCODONE/APAP 5/325MG 1 EACH TABLET PO ONE (21:00)
--- NOTE | 2016-11-07 21:09 | NUR ---
SPOKE TO DR. WALLY WALL WITH NEW ORDERS NOTED AND CARRIED OUT
[2016-11-07] MEDS ORDERED: INSULIN REGULAR, HUMAN 100 UNIT/ML 3 ML VIAL SQ PRN (21:30)
[2016-11-07] MEDS ORDERED: DEXTROSE 50%-WATER 50 ML DISP.SYRIN IV PRN (21:30)
[2016-11-07] MEDS: BLOOD SUGAR DIAGNOSTIC 1 EACH STRIP IN SCH (21:48)
--- NOTE | 2016-11-07 21:48 | NUR ---
PATIENT REFUSED HAYDER PER PATIENT HE DONT WANT IT RISKS AND BENEFITS EXPLAINED OFFERED 3 X STILL REFUSING HAYDER ADAMS MADE AWARE
[2016-11-07] MEDS: APIXABAN 2.5 MG TABLET PO SCH (22:00)
[2016-11-07] MEDS ORDERED: HYDROCODONE/APAP 5/325MG 1 EACH TABLET PO PRN (22:00)
[2016-11-07] MEDS ORDERED: HYDROCODONE/APAP 10/325MG 1 EA TABLET PO PRN (22:00)
[2016-11-07] MEDS: ATORVASTATIN 40 MG TABLET PO SCH (22:00)
--- NOTE | 2016-11-08 00:42 | NUR ---
MS RN INITIAL NOTE PT RECEIVED VIA [employer] AT 11/07/2016 AT 2100, A/O X 3, NO S/S OF RESPIRATORY DISTRESS OR SOB. SAFE ENVIRONMENT PROVIDED FREE OF CLUTTERS. BED IN LOCKED, LOW POSITION. CALL LIGHT WITHIN EASY REACH. WILL CONTINUE TO MONITOR. HEAD TO TOE ASSESSMENT PATIENT REFUSED FOR ME TO TAKE PICTURES OF THE SKIN ISSUES RISKS AND BENEFITS EXPLAINED OFFERED 3 TIMES MD MADE AWARE.
--- NOTE | 2016-11-08 01:13 | NUR ---
NON ADMINISTRATION OF ELIQUIS AND LIPITOR 11/07/16 DUE AT 2200 PATIENT IS REFUSING MEDICATION AT NIGHT PER PATIENT HE DOESN'T WANT IT RISKS AND BENEFITS EXPLAINED MD MADE AWARE OFFERED 3 TIMES AND WAS TRYING TO RE TRY BUT THE PATIENT IS STILL REFUSING MD MADE AWARE PATIENT IS UNCOOPERATIVE WITH HIS PLAN OF CARE
[2016-11-08] MEDS: BLOOD SUGAR DIAGNOSTIC 1 EACH STRIP IN SCH ×4 (05:29→21:36)
--- NOTE | 2016-11-08 05:29 | NUR ---
MS RN NOTES PATIENT REFUSED ACCUCHECK AT THIS TIME PATIENT NON COMPLIANT HIS TREATMENT EXPLAINED AGAIN RISKS AND BENEFITS OFFERED 3 TIMES PATIENT STILL REFUSING MD MADE AWARE.
--- NOTE | 2016-11-08 05:46 | NUR ---
MS RN NOTES PATIENT WAS ASKED TO REMOVED HIS PANTS TO CHECK THE IF THERE IS ANY WOUNDS THAT WE CAN TREAT, PATIENT REFUSES TO BE TOUCH AND DOESN'T WANT TO REMOVE HIS PANTS RISKS AND BENEFITS EXPLAINED EDUCATED PATIENT MD MADE AWARE
--- NOTE | 2016-11-08 05:47 | NUR ---
MS RN NOTES PATIENT HAS NO IV AT THIS TIME, OFFERED 3 TIMES PER PATIENT HE DOESNT LIKE IT AND HE DOESNT WANT TO BE BOTHERED. MD MADE AWARE. RISKS AND BENEFITS EXPLAINED.
--- NOTE | 2016-11-08 06:43 | NUR ---
MS RN CLOSING NOTES PATIENT COMFORTABLY ASLEEP AND EASILY AWAKEN, NO S/S OF DISTRESS, ON 02 2LPM VIA NC 02 SAT AT 96% RESPIRATIONS EVEN AND UNLABORED. NO SOB, NO COUGH, NO CONGESTION, SKIN WARM AND DRY TO TOUCH, AFEBRILE, ALL NURSING CARE NEEDS PROVIDED AND RENDERED, NEEDS ATTENDED AND ANTICIPATED, VS STABLE, KEPT CLEAN AND DRY AND COMFORTABLE, FREQUENT VISUAL CHECK DONE FOR SAFETY EVERY 2 HOURS. SAFE HAZARD FREE ENVIRONMENT PROVIDED. CALL LIGHT WITHIN EASY TO REACH, ON LOW BED AT ALL TIMES TO ENSURE SAFETY, WILL ENDORSE TO THE NEXT SHIFT CONTINUE PLAN OF CARE. PATIENT IS UNCOOPERATIVE WITH HIS PLAN OF CARE REFUSES TO BE TOUCH AT THIS MOMENT RE EDUCATED THE PATIENT, MD MADE AWARE OF THE BEHAVIOR. PATIENT DOESNT TO REMOVE HIS PANTS FOR ME TO SKIN CHECK RISKS AND BENEFITS EXPLAINED STILL REFUSES MD IS AWARE.
--- NOTE | 2016-11-08 07:34 | NUR ---
RN OPENING NOTES RECEIVED PATIENT IN BED, AWAKE, HEAD OF BED ELEVATED, NO SOB OR DISTRESS NOTED, ON O2 @ 2LPM VIA NC AND TOLERATED WELL. A/O X 2, VERBALLY RESPONSIVE AND ABLE TO MAKE NEEDS KNOWN. NO IV AND MD IS AWARE. KEPT PATIENT IN BED, CALL LIGHT WITHIN PATIENT REACH. WILL CONTINUE TO MONITOR ACCORDINGLY.
[2016-11-08 07:58] LABS: CALCIUM, SERUM 9.1 mg/dL (8.5-10.1)
[2016-11-08 08:00] VITALS: BP 133/65
[2016-11-08] MEDS ORDERED: FAMOTIDINE (20 MG) 20 MG TABLET PO PRN (08:30)
[2016-11-08] MEDS ORDERED: hydrOXYzine PAMOATE 25 MG CAPSULE PO PRN (08:30)
[2016-11-08] MEDS ORDERED: IBUPROFEN 600 MG TABLET PO PRN (08:30)
[2016-11-08] MEDS: PROSOURCE / PROSTAT (PYXIS) 30 ML UDC PO SCH ×3 (09:00→17:27)
[2016-11-08] MEDS ORDERED: ONDANSETRON 4 MG TAB.RAPDIS PO PRN (09:00)
[2016-11-08] MEDS ORDERED: ESCITALOPRAM OXALATE (10 MG) 10 MG TABLET PO SCH (09:00)
[2016-11-08] MEDS: APIXABAN 2.5 MG TABLET PO SCH ×2 (10:06→17:26)
[2016-11-08] MEDS: VIT B CMPLX 3/FA/VIT C/BIOTIN 1 TAB TABLET PO SCH (10:06)
[2016-11-08] MEDS: LEVETIRACETAM (250 MG) 250 MG TABLET PO SCH (10:06)
[2016-11-08] MEDS: AMIODARONE HCL 200 MG TABLET PO SCH (10:07)
[2016-11-08] MEDS: LISINOPRIL (20MG) 20 MG TABLET PO SCH (10:08)
[2016-11-08] MEDS: AMLODIPINE BESYLATE 10 MG TABLET PO SCH (10:08)
[2016-11-08 11:02] LABS: EOSINOPHILS # (AUTO) 0.3 /CMM (0.0-0.7); EOSINOPHILS % (AUTO) 2.5 % (0.0-6.0); HEMATOCRIT 37 % (39-51); HEMOGLOBIN 11.8 g/dL (13.5-17.5); LYMPHOCYTES # (AUTO) 0.9 /CMM (0.8-4.8); LYMPHOCYTES % (AUTO) 8.8 % (20.0-44.0); MEAN CORPUSCULAR HEMOGLOBIN 30 PG (26.0-33.0); MEAN CORPUSCULAR HGB CONC 32 g/dl (31.0-36.0); MEAN CORPUSCULAR VOLUME 93 fL (80-96); MONOCYTES # (AUTO) 0.8 /CMM (0.1-1.30); MONOCYTES % (AUTO) 7.6 % (2.0-12.0); NEUTROPHILS # (AUTO) 8.5 /CMM (1.8-8.9); NEUTROPHILS % (AUTO) 81.1 % (43.0-81.0); PLATELET COUNT (AUTO) 239 /CMM (150-450); RDW COEFFICIENT OF VARIATION 18.8 (11.5-15.0); RED BLOOD CELL COUNT(AUTO) 3.96 MIL/uL (4.5-6.0); WHITE BLOOD COUNT (AUTO) 10.4 K/uL (4.3-11.0)
[2016-11-08 12:29] LABS: EOSINOPHILS % (MANUAL) 1 % (0-4); LYMPHOCYTES % (MANUAL) 10 % (16-48); MONOCYTES % (MANUAL) 7 % (0-11.0); NEUTROPHILS % (MANUAL) 82 (42-76)
--- NOTE | 2016-11-08 14:30 | NUR ---
RN NOTES PATIENT IS ASLEEP COMFORTABLE WITH NO SIGNS OF SOB OR DISTRESS NOTED.
[2016-11-08] MEDS ORDERED: ONDANSETRON HCL/PF 4 MG/2 ML VIAL IV PRN (15:30)
[2016-11-08] MEDS ORDERED: ALBUTEROL FS 2.5 MG/0.5 ML VIAL.NEB NEB PRN (15:30)
[2016-11-08] MEDS ORDERED: ACETAMINOPHEN 650 MG/20.3 ML UDC NG PRN (15:30)
[2016-11-08 16:00] VITALS: BP 120/59
--- NOTE | 2016-11-08 17:30 | NUR ---
RN NOTES PATIENT REFUSED ACCU CHECK. PATIENT DO NOT LIKE TO BE TOUCH.
--- NOTE | 2016-11-08 19:17 | NUR ---
RN CLOSING NOTES ALL NEEDS PROVIDED, ATTENDED, AND ANTICIPATED. KEPT PATIENT CLEAN AND COMFORTABLE IN BED. CALL LIGHT WITHIN PATIENT REACH, WILL CONTINUE TO MONITOR ACCORDINGLY. ENDORSED TO NEXT SHIFT RN TO CONTINUE CARE
--- NOTE | 2016-11-08 19:20 | NUR ---
RN NOTE RECEIVED REPORT. PT SITTING UP IN BED, AAOX4. NO S/S OF RESPIRATORY DISTRESS, BREATHING NON-LABORED AND EVEN. NO C/O PAIN/DISCOMFORT. IV INTACT AND PATENT. CALL LIGHT IN REACH - WILL CONT TO MONITOR.
[2016-11-08] MEDS: ALBUTEROL FS 2.5 MG/0.5 ML VIAL.NEB NEB SCH (19:34)
[2016-11-08 20:00] VITALS: BP 133/71
[2016-11-08] MEDS: ATORVASTATIN 40 MG TABLET PO SCH (21:36)
[2016-11-08] MEDS: SENNOSIDES 8.6 MG TABLET PO SCH (21:36)
[2016-11-08] MEDS ORDERED: ATORVASTATIN 40 MG TABLET PO SCH (22:00)
[2016-11-08] MEDS: HYDROCODONE/APAP 10/325MG 1 EA TABLET PO PRN (23:30)
[2016-11-09] MEDS: ALBUTEROL FS 2.5 MG/0.5 ML VIAL.NEB NEB SCH ×4 (01:30→20:01)
--- NOTE | 2016-11-09 06:02 | NUR ---
RN NOTE PT REQUESTED PO PRN MED FOR SHOULDER PAIN 01/09. NORCO GIVEN. WILL MONITOR.
[2016-11-09] MEDS: HYDROCODONE/APAP 10/325MG 1 EA TABLET PO PRN ×2 (06:11→17:11)
[2016-11-09] MEDS: BLOOD SUGAR DIAGNOSTIC 1 EACH STRIP IN SCH ×4 (06:14→22:00)
--- NOTE | 2016-11-09 06:27 | NUR ---
RN NOTE NO SIGNIFICANT CHANGES THIS SHIFT. PT APPEARS COMFORTABLE IN BED, NO S/S OF ANY DITRESS. BREATHING EVEN AND NON-LABORED ON NC 2L. ALL NEEDS ATTENDED TO, CALL LIGHT IN REACH. WILL F/U WITH DAY SHIFT FOR ETHAN.
[2016-11-09] MEDS ORDERED: BLOOD SUGAR DIAGNOSTIC 1 EACH STRIP IN SCH (06:30)
[2016-11-09 07:05] LABS: EOSINOPHILS # (AUTO) 0.3 /CMM (0.0-0.7); HEMATOCRIT 33 % (39-51); HEMOGLOBIN 10.7 g/dL (13.5-17.5); LYMPHOCYTES # (AUTO) 0.9 /CMM (0.8-4.8); LYMPHOCYTES % (AUTO) 8.8 % (20.0-44.0); MEAN CORPUSCULAR HEMOGLOBIN 30 PG (26.0-33.0); MEAN CORPUSCULAR HGB CONC 32 g/dl (31.0-36.0); MEAN CORPUSCULAR VOLUME 93 fL (80-96); MONOCYTES # (AUTO) 0.9 /CMM (0.1-1.30); MONOCYTES % (AUTO) 9.6 % (2.0-12.0); NEUTROPHILS # (AUTO) 7.7 /CMM (1.8-8.9); NEUTROPHILS % (AUTO) 78.6 % (43.0-81.0); PLATELET COUNT (AUTO) 217 /CMM (150-450); RDW COEFFICIENT OF VARIATION 19.1 (11.5-15.0); RED BLOOD CELL COUNT(AUTO) 3.59 MIL/uL (4.5-6.0); WHITE BLOOD COUNT (AUTO) 9.8 K/uL (4.3-11.0)
[2016-11-09 07:30] LABS: CALCIUM, SERUM 9.2 mg/dL (8.5-10.1); PHOSPHORUS 7.8 mg/dL (2.5-4.9); POTASSIUM 5.3 mmol/L (3.5-5.1)
--- NOTE | 2016-11-09 07:51 | NUR ---
RN OPENING NOTES RECEIVED PATIENT IN BED, AWAKE, HEAD OF BED ELEVATED, NO SOB OR DISTRESS NOTED, ON O2 @ 2LPM VIA NC AND TOLERATED WELL. A/O X 3, VERBALLY RESPONSIVE AND ABLE TO MAKE NEEDS KNOWN. NO IV AND MD IS AWARE. KEPT PATIENT IN BED, CALL LIGHT WITHIN PATIENT REACH. WILL CONTINUE TO MONITOR ACCORDINGLY Addendum: 11/09/16 at 6996 by ERIKA BARNEY RN IV INTACT AND PATENT.
[2016-11-09 07:57] LABS: CREATININE 8.1 mg/dL (0.6-1.3)
[2016-11-09 08:00] VITALS: BP 126/62
[2016-11-09] MEDS: IPRATROPIUM NEB FS 0.5 MG/2.5 ML AMPUL.NEB NEB PRN ×2 (08:09→13:01)
[2016-11-09] MEDS: VIT B CMPLX 3/FA/VIT C/BIOTIN 1 TAB TABLET PO SCH (09:10)
[2016-11-09] MEDS: LEVETIRACETAM (250 MG) 250 MG TABLET PO SCH (09:10)
[2016-11-09] MEDS: LISINOPRIL (20MG) 20 MG TABLET PO SCH (09:11)
[2016-11-09] MEDS: AMIODARONE HCL 200 MG TABLET PO SCH (09:12)
[2016-11-09] MEDS: PROSOURCE / PROSTAT (PYXIS) 30 ML UDC PO SCH ×3 (09:12→17:11)
[2016-11-09] MEDS: AMLODIPINE BESYLATE 10 MG TABLET PO SCH (09:12)
[2016-11-09] MEDS: APIXABAN 2.5 MG TABLET PO SCH ×2 (09:13→17:11)
--- NOTE | 2016-11-09 11:30 | NUR ---
RN NOTES DIALYSIS DONE AT 1130. 2.7L WERE TAKING OUT.
[2016-11-09] MEDS: SEVELAMER CARBONATE 800 MG TABLET PO SCH ×2 (12:50→17:11)
[2016-11-09] MEDS: MUPIROCIN OINT 2% 22 GM TUBE SCH ×2 (12:50→22:09)
[2016-11-09 16:00] VITALS: BP 130/72
--- NOTE | 2016-11-09 17:10 | NUR ---
RN NOTES PATIENT REPORTED PAIN 7/10 AND NORCO WAS GIVEN.
--- NOTE | 2016-11-09 19:15 | NUR ---
RN NOTE RECEIVED REPORT. PT SITTING UP IN BED, AAOX4. NO S/S OF RESPIRATORY DISTRESS AT THIS TIME, BREATHING NON-LABORED AND EVEN. NO C/O PAIN/DISCOMFORT. IV INTACT AND PATENT. CALL LIGHT IN REACH - WILL CONT TO MONITOR.
[2016-11-09 20:00] VITALS: BP 129/61
[2016-11-09] MEDS: ATORVASTATIN 40 MG TABLET PO SCH (22:08)
[2016-11-09] MEDS: SENNOSIDES 8.6 MG TABLET PO SCH (22:08)
[2016-11-10] MEDS: IPRATROPIUM NEB FS 0.5 MG/2.5 ML AMPUL.NEB NEB PRN (02:19)
[2016-11-10] MEDS: ALBUTEROL FS 2.5 MG/0.5 ML VIAL.NEB NEB SCH ×4 (02:24→21:08)
--- NOTE | 2016-11-10 03:30 | NUR ---
RN NOTE NO DISTRESS NOTED AT THIS TIME. PT APPEARS COMFORTABLE. WILL MONITOR.
--- NOTE | 2016-11-10 06:31 | NUR ---
PT REFUSING BS CHECK, DESPITE TEACHING AND ENCOUARGEMENT X3. NO S/S OF HYPO/HYPERGLYCEMIA. WILL MONITOR.
--- NOTE | 2016-11-10 06:35 | NUR ---
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 PT RESTING IN BED WITH EYES CLOSED. NO S/S OF ANY DISTRESS AT THIS TIME. ON NC 3L. NO SOB NOTED.CALL LIGHT IN REACH, WILL F/U WITH DAY SHIFT FOR ETHAN.
[2016-11-10] MEDS: BLOOD SUGAR DIAGNOSTIC 1 EACH STRIP IN SCH ×4 (07:00→21:17)
--- NOTE | 2016-11-10 07:28 | NUR ---
MS RN OPENING RECEIVED PATIENT A/OX3 SER[place] SPEAKING ASSISTED WITH TRANSLATION BY TANIA. PATIENT IS NOT WANTING TO TALK MUCH AND WILL NOT RESPOND TO MOST QUESTIONS. NO S/S PAIN, SOB, DIFFICULTY BREATHING. PATIENT REFUSED AM LABS AND ATTEMPTED TO TALK WITH PATIENT BUT HE IS PASSIVE. WILL TRY AGAIN. PATIENT WITH NEEDS IN REACH, BED LOWERED AND LOCKED, RAILS UPX3 FOR SAFETY AND WILL ROUND Q2H OR LESS PER NEEDS.
[2016-11-10 08:00] VITALS: BP 132/73
[2016-11-10] MEDS: PROSOURCE / PROSTAT (PYXIS) 30 ML UDC PO SCH ×3 (08:11→16:25)
[2016-11-10] MEDS: VIT B CMPLX 3/FA/VIT C/BIOTIN 1 TAB TABLET PO SCH (08:31)
[2016-11-10] MEDS: AMLODIPINE BESYLATE 10 MG TABLET PO SCH (08:31)
[2016-11-10] MEDS: LISINOPRIL (20MG) 20 MG TABLET PO SCH (08:31)
[2016-11-10] MEDS: LEVETIRACETAM (250 MG) 250 MG TABLET PO SCH (08:31)
[2016-11-10] MEDS: AMIODARONE HCL 200 MG TABLET PO SCH (08:32)
[2016-11-10] MEDS: APIXABAN 2.5 MG TABLET PO SCH ×2 (08:32→20:22)
[2016-11-10] MEDS: SEVELAMER CARBONATE 800 MG TABLET PO SCH ×3 (08:32→20:22)
[2016-11-10] MEDS: MUPIROCIN OINT 2% 22 GM TUBE SCH ×2 (08:35→20:25)
[2016-11-10 10:55] LABS: BASOPHILS % (AUTO) 0.3 % (0.0-2.0); EOSINOPHILS # (AUTO) 0.4 /CMM (0.0-0.7); EOSINOPHILS % (AUTO) 4.3 % (0.0-6.0); HEMATOCRIT 32 % (39-51); LYMPHOCYTES # (AUTO) 0.8 /CMM (0.8-4.8); LYMPHOCYTES % (AUTO) 8.8 % (20.0-44.0); MEAN CORPUSCULAR HEMOGLOBIN 30 PG (26.0-33.0); MEAN CORPUSCULAR HGB CONC 32 g/dl (31.0-36.0); MEAN CORPUSCULAR VOLUME 94 fL (80-96); MONOCYTES # (AUTO) 1.1 /CMM (0.1-1.30); MONOCYTES % (AUTO) 12.6 % (2.0-12.0); NEUTROPHILS # (AUTO) 6.8 /CMM (1.8-8.9); PLATELET COUNT (AUTO) 202 /CMM (150-450); RDW COEFFICIENT OF VARIATION 17.9 (11.5-15.0); RED BLOOD CELL COUNT(AUTO) 3.39 MIL/uL (4.5-6.0); WHITE BLOOD COUNT (AUTO) 9.1 K/uL (4.3-11.0)
[2016-11-10 11:02] LABS: CALCIUM, SERUM 9.1 mg/dL (8.5-10.1); CREATININE 6.8 mg/dL (0.6-1.3); MAGNESIUM 1.8 mg/dL (1.8-2.4); PHOSPHORUS 6.5 mg/dL (2.5-4.9); POTASSIUM 4.7 mmol/L (3.5-5.1)
--- NOTE | 2016-11-10 12:24 | NUR ---
MS RN NOTES NOTIFIED DR PINEDA PATIENT C/O BEING ITCHY PER MD ORDER 25MG BENADRYL PO Q6H PRN
[2016-11-10] MEDS ORDERED: diphenhydrAMINE HCL 25 MG CAPSULE PO PRN (12:30)
[2016-11-10] MEDS: HYDROCODONE/APAP 5/325MG 1 EACH TABLET PO PRN ×2 (12:44→20:22)
[2016-11-10 16:00] VITALS: BP 111/60
--- NOTE | 2016-11-10 16:40 | NUR ---
ms rn notes hd rn at bedside
--- NOTE | 2016-11-10 18:31 | NUR ---
MS RN CLOSING PATIENT STABLE NO COMPLICATIONS. HD RUNNING AT THIS TIME. RN BILL AT BEDSIDE. ALL DUE MEDS GIVEN AND ALL NEEDS MET. CALL LIGHT IN REACH, BED LOWERED AND LOCKED, RAILS UPX3 FOR SAFETY AND WILL ENDORSE TO RN FOR ETHAN
--- NOTE | 2016-11-10 19:20 | NUR ---
MS RN OPENING NOTES: RECEIVED PT IN BED AND IS AWAKE AND A/OX3 AND IS [place]IZ[place] SPEAKING ONLY. PT IS ON 2LPM VIA NC AND IS TOLERATING WELL. PT IS CURRENTLY RECEIVING HEMODIALYSIS RIGHT NOW. HD NURSE AT BEDSIDE. PT VOICED THAT HE HAS 9/10 PAIN ON HIS R SHOULDER. CALL LIGHT WITHIN PT'S REACH. BED KEPT IN LOCKED, LOWEST POSITION AND SIDE RAILS X 2 UP. PT HAS R WRIST 20G AND IS PATENT AND INTACT. WILL CONTINUE TO MONITOR PT.
--- NOTE | 2016-11-10 19:50 | NUR ---
MS ROBLES NOTES: DIALYSIS NURSE INFORMED ME THAT THE OUTPUT WAS 2500ML. VITAL SIGNS 140/41 HR 63 AND TEMP 98.6 ; WILL CONTINUE TO MONITOR PT. Addendum: 11/11/16 at 0435 by OWEN NANCE RN OUTPUT WAS 2200ML.
[2016-11-10 20:00] VITALS: BP 140/41
--- NOTE | 2016-11-10 20:22 | NUR ---
MS RN NOTES: LATE ADMIN FOR ELIQUIS AND RENAGEL DUE TO PT GETTING DIALYSIS. PT WAS OFFERED FOOD BUT ONLY WANTED JELLO. WILL CONTINUE TO MONITOR PT.
--- NOTE | 2016-11-10 20:38 | NUR ---
MS RN NOTES: PT WAS FOUND WITH HIS R WRIST #20G DISLODGED. WAS OFFERED TO PUT ANOTHER IV IN BUT PT REFUSED AND DOES NOT WANT IT. EXPLAINED TO HIM THAT HE MAY NEED IT BUT REFUSES. PT ALSO REFUSES FOR SKIN ASSESSMENT/PHOTOS TO BE TAKEN. WILL CONTINUE TO MONITOR AND ATTEMPT AT ANOTHER TIME.
[2016-11-10] MEDS: ATORVASTATIN 40 MG TABLET PO SCH (21:12)
[2016-11-10] MEDS: SENNOSIDES 8.6 MG TABLET PO SCH (21:12)
--- NOTE | 2016-11-10 21:23 | NUR ---
MS RN NOTES: PT REFUSED TO GET HIS BLOOD SUGAR CHECKED. IN HIS WORDS " I DON'T NEED IT." EXPLAINED TO PT THE IMPORTANT OF GETTING HIS BLOOD SUGAR CHECKED BUT STILL REFUSED. WILL CONTINUE TO MONITOR PT.
[2016-11-11] MEDS: ALBUTEROL FS 2.5 MG/0.5 ML VIAL.NEB NEB SCH ×3 (02:24→08:51)
--- NOTE | 2016-11-11 06:09 | NUR ---
MS RN NOTES: PT WAS OFFERED FOR A CHANGE OF CLEAN GOWN, AND A BED/SPONGE BATH BUT PT REFUSED. PT IS ALSO REFUSING BLOOD SUGAR CHECK FOR THIS MORNING. PT WAS EXPLAINED THE RISK AND BENEFITS OF GETTING HIS BLOOD SUGAR CHECKED X3. NO S/S OF HYPO/HYPERGLYCEMIA. WILL CONTINUE TO MONITOR PT.
[2016-11-11] MEDS: BLOOD SUGAR DIAGNOSTIC 1 EACH STRIP IN SCH ×2 (06:11→12:00)
--- NOTE | 2016-11-11 06:36 | NUR ---
MS RN NOTES: PT WAS OFFERED TO HAVE AN IV STARTED ON HIM BUT PT REFUSES. WILL ENDORSE TO AM NURSE.
--- NOTE | 2016-11-11 07:25 | NUR ---
MS RN CLOSING NOTES: ALL NEEDS WERE ATTENDED AND ANTICIPATED FOR. PT REFUSED ACCUCHECKS, TO HAVE A NEW IV STARTED, TO BE GIVEN A BED BATH, A CLEAN GOWN, AND ALSO LABS FOR THIS MORNING. PT HAS L CHEST AV SHUNT. PT REFUSES FOR SKIN ASSESSMENT WELL. PT IS ON 2LPM VIA NC AND IS TOLERATING WELL. CALL LIGHT WITHIN PT'S REACH. BED KEPT IN LOCKED, LOWEST POSITION, AND SIDE RAILS X 2 UP. ENDORSED TO AM NURSE FOR ETHAN.
--- NOTE | 2016-11-11 07:30 | NUR ---
MS RN OPENING RECEIVED PATIENT A/OX3 [place] SPEAKING ASSISTED WITH TRANSLATION BY METAL WEIGHER. NO S/S PAIN, SOB, DIFFICULTY BREATHING. PATIENT REFUSED AM LABS AND ATTEMPTED TO TALK WITH PATIENT BUT HE IS PASSIVE. WILL TRY AGAIN. PATIENT WITH NEEDS IN REACH, BED LOWERED AND LOCKED, RAILS UPX3 FOR SAFETY AND WILL ROUND Q2H OR LESS PER NEEDS.
[2016-11-11 08:00] VITALS: BP 115/69
[2016-11-11] MEDS: LEVETIRACETAM (250 MG) 250 MG TABLET PO SCH (08:34)
[2016-11-11] MEDS: VIT B CMPLX 3/FA/VIT C/BIOTIN 1 TAB TABLET PO SCH (08:34)
[2016-11-11] MEDS: APIXABAN 2.5 MG TABLET PO SCH (08:34)
[2016-11-11] MEDS: SEVELAMER CARBONATE 800 MG TABLET PO SCH (08:34)
[2016-11-11] MEDS: PROSOURCE / PROSTAT (PYXIS) 30 ML UDC PO SCH (08:35)
[2016-11-11] MEDS: AMIODARONE HCL 200 MG TABLET PO SCH (08:35)
[2016-11-11] MEDS: HYDROCODONE/APAP 10/325MG 1 EA TABLET PO PRN (08:47)
[2016-11-11] MEDS: MUPIROCIN OINT 2% 22 GM TUBE SCH (08:48)
[2016-11-11] MEDS: IPRATROPIUM NEB FS 0.5 MG/2.5 ML AMPUL.NEB NEB PRN (08:51)
[2016-11-11 09:56] VITALS: BP 132/66
[2016-11-11] MEDS: AMLODIPINE BESYLATE 10 MG TABLET PO SCH (09:56)
[2016-11-11] MEDS: LISINOPRIL (20MG) 20 MG TABLET PO SCH (09:56)
--- NOTE | 2016-11-11 10:00 | NUR ---
MS RN NOTES SPOKE WITH MD AND NOTIFIED PATIENT REFUSING LAB WORK, IV ACCESS. MD WILL SEE PATIENT
--- NOTE | 2016-11-11 10:07 | NUR ---
MSRN NOTES PER MD ORDER SPUTUM SAMPLE
[2016-11-11] MEDS ORDERED: LEVOFLOXACIN (750 MG) 750 MG TABLET PO SCH (10:30)
--- NOTE | 2016-11-11 10:38 | NUR ---
MS RN NOTES CALLED [facility] AND CONFIRMED PATIENT HAS A BED AVAILABLE. CALLED [facility] AND SCHEDULED [facility] FOR 1200
[2016-11-11 10:40] LABS: EOSINOPHILS # (AUTO) 0.5 /CMM (0.0-0.7); HEMATOCRIT 31 % (39-51); HEMOGLOBIN 9.6 g/dL (13.5-17.5); LYMPHOCYTES # (AUTO) 0.9 /CMM (0.8-4.8); LYMPHOCYTES % (AUTO) 7.6 % (20.0-44.0); MEAN CORPUSCULAR HEMOGLOBIN 29 PG (26.0-33.0); MEAN CORPUSCULAR HGB CONC 31 g/dl (31.0-36.0); MEAN CORPUSCULAR VOLUME 94 fL (80-96); MONOCYTES # (AUTO) 1.1 /CMM (0.1-1.30); MONOCYTES % (AUTO) 9.4 % (2.0-12.0); NEUTROPHILS # (AUTO) 9.4 /CMM (1.8-8.9); PLATELET COUNT (AUTO) 170 /CMM (150-450); RDW COEFFICIENT OF VARIATION 18.9 (11.5-15.0); RED BLOOD CELL COUNT(AUTO) 3.29 MIL/uL (4.5-6.0); WHITE BLOOD COUNT (AUTO) 11.9 K/uL (4.3-11.0)
[2016-11-11 10:53] LABS: CALCIUM, SERUM 9.2 mg/dL (8.5-10.1); MAGNESIUM 1.8 mg/dL (1.8-2.4); PHOSPHORUS 3.8 mg/dL (2.5-4.9); POTASSIUM 4.7 mmol/L (3.5-5.1)
--- NOTE | 2016-11-11 12:20 | NUR ---
MS RN DICHARGE PATIENT STABLE NO COMPLICATIONS NO CHANGES. PATIENT EDUCATED AND SIGNED DC PAPERWORK AND BELONGINGS ALL ACCOUNTED FOR. CALLED REPORT TO TIMOTHY LOPEZ AT [facility] AND ENDORSED CARE TO EMT. PATIENT ASSISTED TO OSVALDO AND LEFT IN STABLE CONDITION NO COMPLICATIONS. DC PAPERWORK GIVEN TO EMT
== END 2016-11-11 12:15 | DRG 140 ==
LOC: ER 17:07 → TELE 20:53 → MED 22:17
PROVIDERS: ADMIT Internal Medicine; ATTEND Internal Medicine
PROC: 5A1D60Z (ICD-10-PCS; principal; 2016-11-09)
DX: J44.0 Chronic obstructive pulmonary disease with (acute) lower respiratory infection (principal); J96.01 Acute respiratory failure with hypoxia; I13.2 Hypertensive heart and chronic kidney disease with heart failure and with stage 5 chronic kidney disease, or end stage renal disease; J15.9 Unspecified bacterial pneumonia; N18.6 End stage renal disease; E11.22 Type 2 diabetes mellitus with diabetic chronic kidney disease; I50.9 Heart failure, unspecified; G40.909 Epilepsy, unspecified, not intractable, without status epilepticus; D64.9 Anemia, unspecified; J98.11 Atelectasis; I49.9 Cardiac arrhythmia, unspecified; Z87.891 Personal history of nicotine dependence; E87.70 Fluid overload, unspecified; E83.39 Other disorders of phosphorus metabolism
CPT/HCPCS: 36415; 70450-TC; 71010-TC; 72125-TC; 73060-TC; 78582; 80048-TC; 82962-TC; 83735-TC; 84100-TC; 85025-TC; 87081-TC; 90935-TC; 93970-TC; 94799-TC; 97001-TC; 97003-TC; A4606; A6402; A9540; A9567; J1815; Q0163; Z7610